=== PATIENT | female | born 1985 | race Caucasian/White ===

== ENCOUNTER 2016-11-12 06:10 | Inpatient (IN) | payer OTHER ==
[~2016-11-12] VITALS: Ht 152.5 cm; Wt 77.3 kg
[~2016-11-12 06:10] MED LIST: PRENATAL1 TA1 PO
[2016-12-18] VITALS (48 sets, daily range): BP systolic 75–130; BP diastolic 32–80; PULSE 84–158; TEMP 97.4–98.1
[2016-12-18 07:28] LABS: BASO # 0.1 (0.0-0.2); BASO % 0.4 % (0.0-2.0); EOS # 0.1 (0.0-0.7); EOS % 0.5 % (0-4.0); GRAN # 10.3 (1.4-6.5); GRAN % 72.6 % (42.2-75.2); LYMPH # 2.9 (1.2-3.4); LYMPH % 20.6 % (20.0-51.0); MEAN CELL VOLUME 94 fl (80.0-100.0); MEAN CORPUSCULAR HGB CONC 33 g/dl (33.0-37.0); MEAN PLATELET VOLUME 9.9 fl (7.4-10.4); MONO # 0.7 (0.1-0.6); MONO % 4.8 % (1.7-9.3); PLATELET COUNT 325 K/mm3 (130-400); RED BLOOD COUNT 3.75 M/mm3 (4.10-5.30); REDCELL DISTRIBUTION WIDTH-CV 15.7 % (11.5-14.5); WHITE BLOOD COUNT 14.2 K/mm3 (4.8-10.8)
[2016-12-18 07:31] LABS: HEMATOCRIT 35.2 % (37.0-47.0); HEMOGLOBIN 11.6 g/dl (12.5-16.0); MEAN CORPUSCULAR HEMOGLOBIN 31 pg (27.0-31.0)
[2016-12-18 17:27] LABS: MEAN CELL VOLUME 95 fl (80.0-100.0); MEAN CORPUSCULAR HGB CONC 32 g/dl (33.0-37.0); PLATELET COUNT 270 K/mm3 (130-400); RED BLOOD COUNT 3.16 M/mm3 (4.10-5.30); REDCELL DISTRIBUTION WIDTH-CV 15.4 % (11.5-14.5)
[2016-12-18 17:28] LABS: ADD PATHOLOGY DIFF REVIEW NO; HEMATOCRIT 30.1 % (37.0-47.0); HEMOGLOBIN 9.6 g/dl (12.5-16.0); MEAN CORPUSCULAR HEMOGLOBIN 30 pg (27.0-31.0)
[2016-12-18 17:48] LABS: BAND 17 % (0-10); NEUTROPHILS 71 % (42.0-75.2); PLATELET ESTIMATE NORMAL (NORMAL); TOTAL CELLS COUNTED 100
[2016-12-19 01:45] VITALS: BP 103/65; PULSE 96; TEMP 98.2
[2016-12-19 07:35] LABS: BASO # 0.1 (0.0-0.2); BASO % 0.3 % (0.0-2.0); EOS # 0.1 (0.0-0.7); EOS % 0.2 % (0-4.0); GRAN # 17.3 (1.4-6.5); GRAN % 81.7 % (42.2-75.2); LYMPH # 2.2 (1.2-3.4); LYMPH % 10.5 % (20.0-51.0); MEAN CELL VOLUME 95 fl (80.0-100.0); MEAN CORPUSCULAR HGB CONC 32 g/dl (33.0-37.0); MEAN PLATELET VOLUME 9.6 fl (7.4-10.4); MONO # 1.4 (0.1-0.6); MONO % 6.6 % (1.7-9.3); PLATELET COUNT 312 K/mm3 (130-400); RED BLOOD COUNT 3.39 M/mm3 (4.10-5.30); REDCELL DISTRIBUTION WIDTH-CV 15.9 % (11.5-14.5)
[2016-12-19 07:45] VITALS: BP 106/69; PULSE 84; TEMP 98.1
[2016-12-19 08:18] LABS: HEMATOCRIT 32.1 % (37.0-47.0); HEMOGLOBIN 10.4 g/dl (12.5-16.0); MEAN CORPUSCULAR HEMOGLOBIN 31 pg (27.0-31.0); WHITE BLOOD COUNT 21.2 K/mm3 (4.8-10.8)
[2016-12-19] MEDS ORDERED: IBU800 M1 PO (08:51)
[2016-12-19] MEDS ORDERED: PERCOCET 325 MG1 TA2 PO (08:51)
[2016-12-19 12:30] VITALS: BP 110/68; PULSE 68; PULSE 88; TEMP 98
[2016-12-19 16:20] VITALS: BP 117/68; PULSE 83; TEMP 97.7
[2016-12-19 20:00] VITALS: BP 118/73; PULSE 75; TEMP 97.7
[2016-12-20 07:46] VITALS: BP 109/66; PULSE 70; TEMP 97.8
[2016-12-20 09:53] LABS: MEAN CELL VOLUME 95 fl (80.0-100.0); MEAN CORPUSCULAR HGB CONC 33 g/dl (33.0-37.0); MEAN PLATELET VOLUME 9.5 fl (7.4-10.4); PLATELET COUNT 311 K/mm3 (130-400); RED BLOOD COUNT 3.29 M/mm3 (4.10-5.30); REDCELL DISTRIBUTION WIDTH-CV 15.7 % (11.5-14.5); WHITE BLOOD COUNT 13.6 K/mm3 (4.8-10.8)
[2016-12-20 10:12] LABS: HEMATOCRIT 31.3 % (37.0-47.0); HEMOGLOBIN 10.2 g/dl (12.5-16.0); MEAN CORPUSCULAR HEMOGLOBIN 31 pg (27.0-31.0)
[2016-12-20 16:55] VITALS: BP 127/65; PULSE 93; TEMP 98.3
[2016-12-20 20:00] VITALS: BP 120/69; PULSE 79; TEMP 98
[2016-12-21 01:00] VITALS: BP 120/66; PULSE 88; TEMP 98
[2016-12-21 07:32] VITALS: BP 121/69; PULSE 80
== END 2016-12-21 11:10 | disposition home or self-care (01) | DRG 766 ==
LOC: EDSTATUS 06:10 → LDRO 10:05 → LDR 12-18 06:19 → OB 12-18 06:44
PROVIDERS: Student in an Organized Health Care Education/Training Program
PROC: 10D00Z1 Extraction of Products of Conception, Low, Open Approach (ICD-10-PCS; principal; 2016-12-18)
PROC: 3E033VJ Introduction of Other Hormone into Peripheral Vein, Percutaneous Approach (ICD-10-PCS; 2016-12-18)
DX: O26.843 Uterine size-date discrepancy, third trimester (principal); O76 Abnormality in fetal heart rate and rhythm complicating labor and delivery; O69.81X0 Labor and delivery complicated by cord around neck, without compression, not applicable or unspecified; O99.013 Anemia complicating pregnancy, third trimester; D64.9 Anemia, unspecified; Z3A.39 39 weeks gestation of pregnancy; Z37.0 Single live birth
CPT/HCPCS: J0690; J1885; J2270; J2370; J2400; J2405; J2590; J2795; J7120

== ENCOUNTER → 2020-04-27 | Outpatient (CLI) | payer BC ==
[~2020-04-27] MED LIST changes: +IBU800 M1 PO; +PERCOCET 325 MG1 TA2 PO
== END ==
LOC: ZCOL.LAB 15:54
DX: J02.9 Acute pharyngitis, unspecified (principal); Z20.828 Contact with and (suspected) exposure to other viral communicable diseases